=== PATIENT | female | born 1975 | race Hispanic/Latino ===

== ENCOUNTER 2018-05-14 17:03 | Emergency (ER) | payer OTHER ==
--- NOTE | 2018-05-14 18:08 | ED PDOC ---
HPI: Abdomen Time Seen by Provider: 05/14/18 17:15 Chief Complaint (Nursing): Abdominal Pain Chief Complaint (Provider): Abdominal Pain History Per: Patient History/Exam Limitations: no limitations Onset/Duration Of Symptoms: Days (x1) Current Symptoms Are (Timing): Still Present Location Of Pain/Discomfort: RUQ Quality Of Discomfort: Burning Associated Symptoms: Loss Of Appetite. denies: Fever, Vomiting, Diarrhea Exacerbating Factors: Food Additional Complaint(s): 43 year old female with no significant past medical history presents to the ED with discomfort an burning sensation in her upper abdomen. Patient reports that she was woken up by upper abdominal discomfort. This morning she was unable to eat anything because eating exacerbated the discomfort. Patient was forced to eat due to increasing hunger, which worsened the pain considerably prompting ED visit. She denies fever, vomiting, diarrhea, or any other medical complaints. PMD: none provided Past Medical History Reviewed: Historical Data, Nursing Documentation, Vital Signs Vital Signs: Last Vital Signs Temp 98.8 F 05/14/18 17:35 Pulse 88 05/14/18 17:35 Resp 16 05/14/18 17:35 BP 147/87 05/14/18 17:35 Pulse Ox 98 05/14/18 17:35 - Medical History PMH: No Chronic Diseases - Surgical History Other surgeries: culposcopy - Family History Family History: States: Unknown Family Hx - Social History Current smoker - smoking cessation education provided: No Ex-Smoker (has not smoked in the last 12 months): No Alcohol: Occasional - Home Medications Home Medications: Ambulatory Orders Medication Instructions Recorded Benzonatate [Tessalon Perles] 100 mg PO TID #30 sgl 08/21/14 Fluticasone Nasal [Flonase] 1 actuation NS BID #1 bottle 08/21/14 Oseltamivir Phosphate [Tamiflu] 75 mg PO BID #10 cap 08/21/14 Famotidine [Pepcid] 20 mg PO BID #20 tab 05/14/18 RX: Omeprazole 20 mg PO DAILY #30 capsule. 05/14/18 - Allergies Allergies/Adverse Reactions: Allergies Allergy/AdvReac Type Severity Reaction Status Date / Time No Known Allergies Allergy Verified 05/14/18 17:35 Review of Systems ROS Statement: Except As Marked, All Systems Reviewed And Found Negative Constitutional: Negative for: Fever Gastrointestinal: Positive for: Abdominal Pain (burning and discomfort). Negative for: Vomiting, Diarrhea Physical Exam - Reviewed Nursing Documentation Reviewed: Yes Vital Signs Reviewed: Yes - Physical Exam Appears: Positive for: Non-toxic, No Acute Distress Head Exam: Positive for: ATRAUMATIC, NORMOCEPHALIC Skin: Positive for: Normal Color, Warm, Dry Eye Exam: Positive for: Normal appearance, EOMI, PERRL ENT: Positive for: Normal ENT Inspection Neck: Positive for: Normal, Painless ROM, Supple Cardiovascular/Chest: Positive for: Regular Rate, Rhythm. Negative for: Murmur Respiratory: Positive for: Normal Breath Sounds. Negative for: Respiratory Distress Gastrointestinal/Abdominal: Positive for: Normal Exam, Bowel Sounds, Soft, Tenderness (mild mid epigastric tenderness). Negative for: Organomegaly, Distended, Guarding, Rebound Back: Positive for: Normal Inspection Extremity: Positive for: Normal ROM (upper and lower). Negative for: Pedal Edema, Deformity Neurologic/Psych: Positive for: Alert, Oriented - Laboratory Results Result Diagrams: 05/14/18 18:43 05/14/18 18:43 - ECG ECG Rhythm: Positive for: Sinus Rhythm (normal) Rate: 78 O2 Sat by Pulse Oximetry: 98 (RA) Pulse Ox Interpretation: Normal Medical Decision Making Medical Decision Making: Time: 1756 Initial Plan: upper abdominal pain for 24 hours --EKG --CMP --Lipase --U dip --CBC with differentials --Pepcid 20 mg IVP --Protonix 40 mg IVP --Urine C&S --US gallbladder and common duct --Rule out gallbladder disease, gastritis, pancreatitis. EKG NSR Time: 1899 --Patient signed out to Dr. Beck by this provider, pending workup. Scribe Attestation: Documented by Veena Santos, acting as a scribe for Harjit Morejon MD Provider Scribe Attestation: All medical record entries made by the Scribe were at my direction and personally dictated by me. I have reviewed the chart and agree that the record accurately reflects my personal performance of the history, physical exam, medical decision making, and the department course for this patient. I have also personally directed, reviewed, and agree with the discharge instructions and disposition. Disposition - Clinical Impression Clinical Impression: Gastritis - Patient ED Disposition Is Patient to be Admitted: Transfer of Care - Disposition Referrals: Anju Deutsch [Outside] Aniceto Clay MD, PhD [Staff Provider] - Disposition: Transfer of Care Disposition Time: 19:00 Condition: STABLE Prescriptions: Famotidine [Pepcid] 20 mg PO BID #20 tab RX: Omeprazole 20 mg PO DAILY #30 capsule. Instructions: Gastritis Forms: [employer] (E[place]ian) Patient Signed Over To: Dhruv Beck
[2018-05-14 18:49] LABS: BASO # 0.1 K/uL (0.0-0.2); BASO % 0.6 % (0.0-2.0); EOS # 0.1 K/uL (0.0-0.7); EOS % 1.1 % (0.0-4.0); HEMOGLOBIN 12.7 g/dL (12.0-16.0); LYMPH # 1.6 K/uL (1.0-4.3); LYMPH % 17.2 % (20.0-40.0); MEAN CELL VOLUME 94.4 fl (81.0-99.0); MEAN CORPUSCULAR HEMOGLOBIN 32.8 pg (27.0-31.0); MEAN CORPUSCULAR HGB CONC 34.8 g/dL (33.0-37.0); MEAN PLATELET VOLUME 8.2 fl (7.2-11.7); MONO # 0.8 K/uL (0.0-0.8); MONO % 8.8 % (0.0-10.0); NEUT # 6.8 K/uL (1.8-7.0); NEUT % 72.3 % (50.0-75.0); NRBC % 0.1 % (0.0-0.0); RBC 3.87 Mil/uL (3.80-5.20); RED CELL DISTRIBUTION WIDTH 13.1 % (11.5-14.5); WHITE BLOOD COUNT 9.4 K/uL (4.8-10.8)
[2018-05-14 19:06] LABS: ALB/GLOB RATIO 1.3 (1.0-2.1); ALT/SGPT 30 U/L (9-52); AST/SGOT 23 U/L (14-36); BLOOD UREA NITROGEN 16 mg/dl (7-17); CALCIUM 9.2 mg/dL (8.4-10.2); GFR NON-AFRICAN AMERICAN > 60; LIPASE 54 U/L (23-300)
[2018-05-14] MEDS ORDERED: Alum-Mag Hydrox-Simethicone Susp (30 mL) PO ONE (19:59)
[2018-05-14 20:43] VITALS: BP 117/45; RESP 18; TEMP 98.4
--- NOTE | 2018-05-15 05:28 | ED PDOC ---
- Laboratory Results Result Diagrams: 05/14/18 18:43 05/14/18 18:43 - ECG O2 Sat by Pulse Oximetry: 100 Pulse Ox Interpretation: Normal Medical Decision Making Medical Decision MakinPM Patient endorsed to me by Dr. Morejon pending U/S and re-eval Re-evaluated patient at bedside who states she still is having some pain that feels like a pressure 9PM US shows no acute abnormality Patient reports resolution of symptoms after PO GI cocktail Advised patient that she should followup with GI for endoscopy and colonoscopy Very well appearing upon discharge Disposition - Clinical Impression Clinical Impression: Gastritis - POA Present On Arrival: None - Disposition Referrals: [facility] Deutsch [Outside] Aniceto Clay MD, PhD [Staff Provider] - Disposition: Routine/Home Disposition Time: 21:00 Condition: STABLE Prescriptions: Famotidine [Pepcid] 20 mg PO BID #20 tab Omeprazole 20 mg PO DAILY #30 capsule. Instructions: Gastritis Forms: [employer] (Wolof)
--- NOTE | 2018-05-15 06:40 | CARD ---
APPROVED REPORT Date of service: 05/14/2018 EKG Measurement Heart [id number] <Conclusion> Normal sinus rhythm Normal ECG
--- NOTE | 2018-05-15 10:21 | US ---
Date of service: 05/14/2018 HISTORY: upper abdominal pain COMPARISON: None. TECHNIQUE: Sonographic evaluation of the right upper quadrant of the abdomen. FINDINGS: LIVER: Measures 14.8 cm in length. Normal echogenicity of the liver parenchyma. No mass. No intrahepatic bile duct dilatation. GALLBLADDER: The gallbladder is contracted due to nonfasting status. There are no gallstones, wall thickening or pericholecystic fluid. The sonographic Sal's sign is negative. COMMON BILE DUCT: Measures 3.0 mm. No stones. No dilatation. PANCREAS: Normal in size and echotexture. No mass. No ductal dilatation. RIGHT KIDNEY: Measures 10.0 cm in length. Normal echogenicity. No calculus, mass, or hydronephrosis. AORTA: No aneurysmal dilatation. IVC: Unremarkable. OTHER FINDINGS: None . IMPRESSION: Gallbladder is contracted due to nonfasting status. No acute findings. A preliminary report was provided by [employer].
[2018-05-15 20:00] VITALS: PULSE 78; O2SAT 98
== END 2018-05-14 20:45 | disposition home or self-care (01) ==
LOC: H.ER 17:03
DX: K29.70 Gastritis, unspecified, without bleeding (principal)
CPT/HCPCS: 76705; 80053; 81025; 83690; 85025; 87086; 93005; 96374; 96375; 99284; C9113